=== PATIENT | male | born 1995 | race Caucasian/White ===

== ENCOUNTER 2017-07-14 16:26 | Emergency (ER) | payer MEDICAID, OTHER ==
[~2017-07-14] VITALS: Ht 170.2 cm; Wt 81.6 kg
[2017-07-14 16:35] VITALS: BP 101/61
--- NOTE | 2017-07-14 16:40 | NUR ---
Patient to bed 04.
--- NOTE | 2017-07-14 16:45 | NUR ---
PT PRESENTS TO FOR EVALUATION OF VOMITING AND BODY ACHES X3 DAYS. SKIN IS PINK/WARM/DRY; AAOX4 WITH EVEN AND STEADY GAIT; LUNGS CLEAR BL; HR EVEN AND REGULAR; PT DENIES ANY FEVER, CP, SOB, OR COUGH AT THIS TIME; PATIENT STATES PAIN OF 7/10 AT THIS TIME; VSS; PATIENT POSITIONED FOR COMFORT; HOB ELEVATED; BEDRAILS UP X2; BED DOWN. ER MD MADE AWARE OF PT STATUS.
--- NOTE | 2017-07-14 16:48 | NUR ---
Dr. bojorquez evaluating patient at bedside.
[2017-07-14] MEDS ORDERED: ONDANSETRON 4 MG/2 ML VIAL IVP ONE (16:50)
[2017-07-14] MEDS ORDERED: NACL 0.9% 1,000 ML IV ONE (16:50)
[2017-07-14] MEDS ORDERED: KETOROLAC 30 MG/ML VIAL IVP ONE (16:50)
[2017-07-14 17:20] LABS: ANION GAP 13.5 (8-16); CARBON DIOXIDE 27.5 mmol/L (21-32)
[2017-07-14 17:26] LABS: ALBUMIN 4.3 g/dL (3.4-5.0); TOTAL BILIRUBIN 0.6 mg/dL (0.0-1.0)
[2017-07-14 17:31] LABS: HEMOGLOBIN 15.7 g/dL (12.0-18.0); MEAN CORPUSCULAR HEMOGLOBIN 29 pg (27-31); MEAN CORPUSCULAR HGB CONC 33 g/dL (33-37); MEAN CORPUSCULAR VOLUME 87 fL (80-94); PLATELET COUNT (AUTO) 197 K/uL (140-450); RED BLOOD CELL COUNT(AUTO) 5.43 MIL/uL (4.20-6.10); RED CELL DISTRIBUTION WIDTH 11.9 % (11.6-13.7); WHITE BLOOD COUNT (AUTO) 10.9 K/uL (4.5-11.0)
[2017-07-14 17:32] LABS: LYMPHOCYTES % (MANUAL) 11 % (20-46); MONOCYTES % (MANUAL) 2 % (5-12)
[2017-07-14 18:15] VITALS: BP 123/72
--- NOTE | 2017-07-14 18:15 | NUR ---
Patient discharged with v/s stable. Written and verbal after care instructions given and explained. Patient alert, oriented and verbalized understanding of instructions. Ambulatory with steady gait. All questions addressed prior to discharge. ID band removed. Patient advised to follow up with PMD. Rx of ZOFRAN, TRAMADOL given. Patient educated on indication of medication including possible reaction and side effects. Opportunity to ask questions provided and answered.
== END 2017-07-14 18:15 | disposition home or self-care (01) ==
LOC: MED 16:26
DX: A08.4 Viral intestinal infection, unspecified (principal)
CPT/HCPCS: 36415; 80053; 85025; 96361; 96374; 96375; 99284; J1885; J2405; J7030

== ENCOUNTER 2021-07-15 23:10 | Emergency (ER) | payer OTHER ==
[~2021-07-15] VITALS: Ht 172.7 cm; Wt 87.1 kg
[2021-07-15 23:19] VITALS: BP 132/76
--- NOTE | 2021-07-15 23:27 | NUR ---
PATIENT TO [facility] AMBULATORY
--- NOTE | 2021-07-15 23:30 | NUR ---
PT C/O ABDOMINAL PAIN X 1 DAY WITH VOMITING AND DIARRHEA. [facility] HX: NONE
--- NOTE | 2021-07-15 23:46 | NUR ---
ELIJAH EXAMINING PATIENT IN CHAIR A
[2021-07-16] MEDS ORDERED: PIPERACILLIN/TAZOBACTAM 3.375 GM in DEXTROSE 5% 50 ML IV ONE ×2
[2021-07-16] MEDS ORDERED: MORPHINE SULFATE 2 MG/ML SYR IVP ONE
[2021-07-16] MEDS ORDERED: PANTOPRAZOLE 40 MG INJ VIAL IVP ONE
[2021-07-16] MEDS ORDERED: ACETAMINOPHEN EXTRA STRENGTH 500 MG TAB PO ONE
[2021-07-16] MEDS ORDERED: NACL 0.9% 2,500 ML IV ONE
[2021-07-16] MEDS ORDERED: ONDANSETRON 4 MG/2 ML VIAL IVP ONE
--- NOTE | 2021-07-16 00:02 | NUR ---
CALLED FOR PATIENT NO ANSWER AT THIS TIME
--- NOTE | 2021-07-16 00:09 | NUR ---
PT AMBULATED TO BED 5
--- NOTE | 2021-07-16 00:10 | NUR ---
BLOOD DRAWN VIA IV START AND GIVE TO CPT ABBI.
[2021-07-16] MEDS ORDERED: PIPERACILLIN/TAZOBACTAM 3.375 GM VIAL IV ONE (00:20)
[2021-07-16 00:22] LABS: BASOPHILS % (AUTO) 0.2 % (0.0-2.0); EOSINOPHILS % (AUTO) 0.1 % (0.0-4.0); HEMATOCRIT 48.5 % (36-52); HEMOGLOBIN 16.4 g/dL (12.0-18.0); LYMPHOCYTES # (AUTO) 0.4 K/uL (2.0-11.5); LYMPHOCYTES % (AUTO) 4.2 % (20.5-51.1); MEAN CORPUSCULAR HEMOGLOBIN 29 pg (27-31); MEAN CORPUSCULAR HGB CONC 34 g/dL (33-37); MEAN CORPUSCULAR VOLUME 86.9 fL (80-94); MONOCYTES # (AUTO) 0.3 K/uL (0.8-1.0); MONOCYTES % (AUTO) 3.4 % (1.7-9.3); NEUTROPHILS # (AUTO) 8.5 K/uL (1.8-7.7); NEUTROPHILS % (AUTO) 92.1 % (42.2-75.2); PLATELET COUNT (AUTO) 212 K/uL (140-450); RED BLOOD CELL COUNT(AUTO) 5.59 MIL/uL (4.20-6.10); WHITE BLOOD COUNT (AUTO) 9.2 K/uL (4.8-10.8)
[2021-07-16 01:55] LABS: ALBUMIN 4.4 g/dL (3.4-5.0); ANION GAP 16.9 (8-16); CARBON DIOXIDE 25.2 mmol/L (21-32); CREATININE 1.1 mg/dL (0.6-1.3); POTASSIUM 4.1 mmol/L (3.5-5.1)
[2021-07-16] MEDS ORDERED: PANT40EC PO (02:26)
--- NOTE | 2021-07-16 02:53 | NUR ---
PATIENT AMBULATED TO THE BATHROOM FOR URINE COLLECTION.
--- NOTE | 2021-07-16 02:58 | NUR ---
IV removed, catheter intact and site benign. Applied folded 4x4 gauze and tape to stop bleeding.
[2021-07-16 03:00] VITALS: BP 128/78
--- NOTE | 2021-07-16 03:00 | NUR ---
Patient discharged with v/s stable. Written and verbal after care instructions given and explained. Patient alert, oriented and verbalized understanding of instructions. Ambulatory with steady gait. All questions addressed prior to discharge. ID band removed. Patient advised to follow up with PMD. Rx of PROTONIX given. Patient educated on indication of medication including possible reaction and side effects. Opportunity to ask questions provided and answered.
--- NOTE | 2021-07-16 03:04 | NUR ---
The patient's care was reviewed and supervised by Ciara Marino RN.
[2021-07-16 03:05] LABS: APPEARANCE,URINE CLEAR (CLEAR); BILIRUBIN,URINE NEGATIVE (NEGATIVE); BLOOD, URINE TRACE-I (NEGATIVE); COLOR,URINE YELLOW (YELLOW); LEUKOCYTE ESTERASE ,URINE NEGATIVE (NEGATIVE); NITRITE, URINE NEGATIVE (NEGATIVE); UGLUCOSE NEGATIVE (NEGATIVE)
[2021-07-16 03:13] LABS: RBC,URINE 0-5 /HPF (0-5); WBC,URINE 0-5 /HPF (0-5)
== END 2021-07-16 03:00 | disposition home or self-care (01) ==
LOC: MED 23:10
DX: R10.13 Epigastric pain (principal); Z20.822 Contact with and (suspected) exposure to COVID-19; R11.2 Nausea with vomiting, unspecified; R19.7 Diarrhea, unspecified
CPT/HCPCS: 36415; 74176; 80053; 81001; 83605; 83690; 84484; 85025; 87040; 87426; 93005; 96365; 96375; 99285; C9113; J2270; J2405; J2543; J7030